=== PATIENT | female | born 1975 | race Caucasian/White ===

== ENCOUNTER 2024-05-03 10:04 | Emergency (ER) | payer BC, OTHER ==
[2024-05-03] MEDS ORDERED: Ketorolac Tromethamine 30 MG (1 mL) VIAL ONE (11:01)
[2024-05-03] MEDS ORDERED: diphenhydrAMINE 50 MG/ML VIAL ONE (11:01)
[2024-05-03] MEDS ORDERED: methylPREDNISolone Sod Succ/PF 125 MG/2 ML VIAL ONE (11:01)
[2024-05-03] MEDS ORDERED: Metoclopramide HCl 10 MG (2 mL) VIAL ONE (11:01)
[2024-05-03 11:32] LABS: #Basophils 0.06 10x3/uL (0.0-0.2); %Basophils 0.7 % (0.0-1.0); %Eosinophils 4.5 % (0.0-10.0); %Lymphocytes 22.9 % (21.0-51.0); %Monocytes 6.1 % (0.0-10.0); %Neutrophils 65.6 % (42.0-75.0); Hematocrit 41.2 % (36.0-47.0); Mean Corpuscular Hemoglobin 31.3 pg (27.0-31.0); Mean Corpuscular Volume 92.2 fL (78.0-98.0); Mean Platelet Volume 9.6 fL (7.4-10.4); Platelet Count 331 10x3/uL (130-400); RBC Distribution Width 13.5 % (11.5-14.5); Red Blood Cell (RBC) Count 4.47 mill/uL (4.20-5.40)
[2024-05-03 11:47] LABS: ALT (SGPT) 14 U/L (8-55); AST (SGOT) 11 U/L (5-34); Albumin 4.7 g/dL (3.5-5.0); Alkaline Phosphatase 77 U/L (40-110); Anion Gap 15 mmol/L (10-20); BUN (Urea Nitrogen) 13 mg/dL (7.0-18.7); Bilirubin, Total 0.6 mg/dL (0.2-1.2); Calc. Creatinine Clearance 0 mL/min (70-130); Carbon Dioxide 21 mmol/L (22-29); Chloride 106 mmol/L (98-107); Estimated GFR 62; Globulin 3.3 g/dL (2.4-3.5); Glucose 87 mg/dL (70-105); Potassium 4.1 mmol/L (3.5-5.1); Sodium 138 mmol/L (136-145)
[2024-05-03 11:52] LABS: Troponin I Less than 0.010 ng/mL (< 0.028)
== END 2024-05-03 13:15 | disposition home or self-care (01) ==
LOC: ERS 10:04
DX: R51.9 Headache, unspecified (principal); R11.2 Nausea with vomiting, unspecified; I10 Essential (primary) hypertension; Z79.899 Other long term (current) drug therapy
CPT/HCPCS: 70450; 71045; 80053; 84484; 85025; 93005; 96365; 96366; 96375; J1200; J1885; J2765; J2919